=== PATIENT | female | born 1960 | race Caucasian/White ===

== ENCOUNTER 2018-03-25 13:13 | Emergency (ER) | payer OTHER ==
[~2018-03-25] VITALS: Ht 165.1 cm; Wt 85.7 kg
[2018-03-25 13:33] VITALS: Ht 165.1 cm; Wt 85.7 kg
[2018-03-25 14:06] VITALS: BP 126/94
== END 2018-03-25 14:06 | disposition home or self-care (01) ==
LOC: ED 13:13
DX: K11.21 Acute sialoadenitis (principal); E11.9 Type 2 diabetes mellitus without complications; Z88.8 Allergy status to other drugs, medicaments and biological substances